=== PATIENT | female | born 1960 | race Caucasian/White ===

== ENCOUNTER → 2020-09-05 | Outpatient (CLI) | payer BC ==
[~2020-09-05] MED LIST: BARIUM SULFATE 40% (APPLE) 148 GM PWD. PO ONE
--- NOTE | 2020-09-06 08:16 | RAD ---
Examination: DG VIDEO SWALLOW STUDY History: Reason: SPEECH [id number] / Spl. Instructions: / History: Comparison/Correlation: None Findings: Video swallow examination was performed utilizing 1.6 minutes of fluoroscopy. Thin liquid b arium, paste consistency, solid consistency, and mixed consistency was utilized. Oropharyngeal motility is adequate. There is occasional epiglottic penetration seen with thin liquid barium when consumed via a straw. No aspiration. No significant residuals. Impression: Epiglottic penetration which clears is seen with thin liquid barium. No aspiration. Electronically signed by: Gadiel Garcia MD (09/06/2020 8:13 AM) [id number]
== END ==
LOC: RAD 13:00
PROVIDERS: ATTEND Internal Medicine Gastroenterology
DX: R13.10 Dysphagia, unspecified (principal)
CPT/HCPCS: 74230; 92611-GN

== ENCOUNTER → 2020-09-10 | Outpatient (CLI) | payer BC ==
[2020-09-10] MEDS: SIMETHICONE/SOD BICARB/CITRIC ACID PACKET. PO ONE (08:00)
[2020-09-10] MEDS: BARIUM SULFATE 340 GM SUSPENSION. PO ONE (08:00)
[2020-09-10] MEDS: BARIUM SULFATE 60% 355 ML SUSP PO ONE (08:00)
--- NOTE | 2020-09-10 09:44 | RAD ---
Esophagogram INDICATION: Choking episodes with eating and difficulty swallowing. COMPARISON: Video swallow study 09/05/2020 TECHNIQUE: Upright bilateral posterior oblique imaging of the thoracic esophagus was performed during ingestion of thick barium following initial administration of effervescent crystals. Thereafter, pro ne FRANK imaging of the thoracic esophagus was performed during ingestion of thick barium. 3 image seri es were acquired for procedural documentation with a total fluoroscopy time of 2.1 minutes. FINDINGS: No esophageal stricture or web is identified. No mucosal fold thickening or mural irregularity. Small hiatal hernia is noted with a few nonpropulsive retrograde contractions noted in the mid thoracic es ophagus. Reflux was not observed although provocative maneuvers were not utilized. IMPRESSION: Findings suggest presbyesophagus. Otherwise negative esophagram. Electronically signed by: Tae Ramos MD (09/10/2020 9:42 AM) [id number]
== END ==
LOC: RAD 14:10
PROVIDERS: ATTEND Internal Medicine Gastroenterology
DX: K22.8 Other specified diseases of esophagus (principal); R13.10 Dysphagia, unspecified
CPT/HCPCS: 74220